=== PATIENT | female | born 1990 | race Caucasian/White ===

== ENCOUNTER 2018-01-12 15:20 | Emergency (ER) | payer BC ==
[2018-01-12] MEDS ORDERED: PRENATAL 19 TA1 EACH PO (15:30)
[2018-01-12] MEDS ORDERED: TUMS REGULAR S500 MG PO (15:31)
[2018-01-12 15:58] LABS: EOS # 0.2 (0.04-0.40); EOS % 1.8 % (1.0-5.0); HEMATOCRIT 40.2 % (37.0-47.0); HEMOGLOBIN 13.9 g/dL (12.5-16.0); LYMPH# 2.6 (1.50-4.00); MEAN CELL VOLUME 85 fl (78-100); MEAN CORPUSCULAR HEMOGLOBIN 30 pg (27-31); MEAN CORPUSCULAR HGB CONC 35 g/dL (33-37); MEAN PLATELET VOLUME 9.5 fl (7.4-10.4); MONO # 0.6 (0.20-0.80); NEU # 6.8 (1.40-6.50); PLATELET COUNT 248 K/mm3 (130-400); RED BLOOD COUNT 4.71 M/mm3 (4.10-5.30); RED CELL DISTRIBUTION WIDTH 13.4 % (11.5-14.5); WHITE BLOOD COUNT 10.3 K/mm3 (4.8-10.8)
[2018-01-12 16:05] LABS: ALBUMIN 4.3 g/dL (3.5-5.0); ALT/SGPT 23 U/L (9-52); AST-SGOT 19 U/L (14-36); BUN/CREATININE RATIO 25.3 (6.0-26.0); CALCIUM 9.7 mg/dL (8.4-10.2); CARBON DIOXIDE 26 mmol/L (22-30); GLUCOSE 88 mg/dL (65-105); SODIUM 136 mmol/L (137-145); TOTAL PROTEIN 7.6 g/dL (6.3-8.2)
[2018-01-12 16:07] LABS: TOTAL BILIRUBIN < 0.1 mg/dL (0.2-1.3)
[2018-01-12 16:56] LABS: PH-URINE 5.5 (5.0 - 8.0); URINE APPEARANCE CLEAR; URINE COLOR YELLOW; URINE GLUCOSE NEGATIVE (NEGATIVE); URINE KETONE TR (NEGATIVE); URINE PROTEIN(semi-quant) NEGATIVE (NEGATIVE)
[2018-01-12 16:57] LABS: URINE BILIRUBIN NEGATIVE (NEGATIVE); URINE BLOOD NEGATIVE (NEGATIVE); URINE LEUKOCYTE ESTERASE NEGATIVE (NEGATIVE); URINE NITRATE NEGATIVE (NEGATIVE); URINE UROBILINOGEN NORMAL (NORMAL)
[2018-01-12 17:30] VITALS: BP 122/67
== END 2018-01-12 17:30 | disposition home or self-care (01) ==
LOC: ED 15:20
PROVIDERS: Nurse Practitioner Primary Care
DX: R07.89 Other chest pain (principal); Q89.3 Situs inversus; R06.02 Shortness of breath; R00.1 Bradycardia, unspecified
CPT/HCPCS: Q9967

== ENCOUNTER → 2022-08-13 | Outpatient (CLI) | payer MEDICAID ==
[~2022-08-13] MED LIST: PRENATAL 19 TA1 EACH PO; TUMS REGULAR S500 MG PO
== END ==
LOC: RAD 14:09
DX: M79.671 Pain in right foot (principal); X50.1XXA Overexertion from prolonged static or awkward postures, initial encounter